=== PATIENT | female | born 1985 | race Caucasian/White ===

== ENCOUNTER 2016-11-29 09:00 | Emergency (ER) | payer OTHER ==
[~2016-11-29] VITALS: Ht 172.7 cm; Wt 68.0 kg
--- NOTE | ~2016-11-29 | US85 ---
[facility]. [facility] A Service of [facility] RADIOLOGY TEXT RESULTS PATIENT: JULIETTE RODRIGUEZ LOCATION: SED : 89 UNIT #: [id number] AGE: [address]: Alesha Paul MD SEX: F ORDER DR: [id number] [place] [id number] E MR#: [id number] Acc #: [id number] NAME: JULIETTE RODRIGUEZ : 1985 SEX: F STUDY DATE/TIME: 11/29/2016 10:20 UNIT: SED ROOM: STUDY DESCRIPTION: [facility] Doculogy or [facility] Attending Physician: Alesha Paul M.D. Ordering Physician: Alesha Paul M.D. MEDICAL IMAGING REPORT This report is preliminary unless electronic signature is present. EXAM Right lower extremity venous duplex 11/29/2016 HISTORY Right lower extremity pain and edema for 2 days. Evaluate for deep vein thrombosis. TECHNIQUE Venous ultrasound examination of the right lower extremity was performed using grayscale, spectral Doppler and color flow Doppler imaging. FINDINGS The examination is negative. There is no evidence of right lower extremity deep venous thrombus from the groin to the lower calf. Visualized greater saphenous vein is also patent. IMPRESSION Negative examination. No evidence of right lower extremity deep venous thrombosis. Dictated by... Thomas Looney M.D. THIS IS AN ELECTRONICALLY VERIFIED REPORT Thomas Looney M.D. at 11/30/2016 7:17 AM KRT/pcl TD: 11/29/2016 16:31 JOB #: [id number] [facility] A Service of [facility] RADIOLOGY TEXT RESULTS PATIENT: JULIETTE RODRIGUEZ LOCATION: SED : [birth year] UNIT #: [id number] AGE: [address]: Alesha Paul MD SEX: F ORDER DR: MEDICAL IMAGING REPORT Page 1 of 1
[~2016-11-29 09:00] MED LIST: BACTRIM DS TABL1 TA1 PO; BACTRIM DS TABL1 TAB PO; BIRTH CONTROL PILL PO; CIPRO PO; FLAGYL PO; IBUPROFEN600 MG PO; NO MEDICATIONS; PERCOCET5/325 PO; PHENERGAN25 M1 PO; PHENERGAN25 MG PR; PYRIDIUM; PYRIDIUM PO; SILVADENE TOP; TYLENOL #3 PO; ZANTAC150 M2 DOB
== END 2016-11-29 11:13 | disposition home or self-care (01) ==
LOC: SED 09:00
DX: M79.604 Pain in right leg (principal); F17.210 Nicotine dependence, cigarettes, uncomplicated; Z79.899 Other long term (current) drug therapy; Z88.8 Allergy status to other drugs, medicaments and biological substances
CPT/HCPCS: 93971; 99284